=== PATIENT | female | born 1955 | race Caucasian/White ===

== ENCOUNTER 2019-11-20 15:13 | Inpatient (IN) | payer MEDICARE, OTHER ==
--- NOTE | 2019-11-20 16:08 | RAD ---
FRONTAL RADIOGRAPH CHEST: 11/20/19 COMPARISON: 09/26/19. HISTORY: Unresponsive patient. FINDINGS: There has been interval development of interstitial and alveolar opacity in the perihilar regions and both lung bases with dense opacity and bilateral lung bases obscuring bilateral hemidiaphragms. No p neumothorax. IMPRESSION: Nonspecific interstitial and alveolar opacity in the perihilar regions in both lung bases. Findings m ay be on the basis of multifocal infectious pneumonitis, aspiration, and/or pulmonary edema. POS: [facility]
[2019-11-20 16:10] LABS: Hemoglobin 3.8 g/dL (12.0-16.0); Mean Corpuscular HGB CONC 33.6 g/dL (32.0-36.0); Mean Corpuscular Hemoglobin 34.5 pg (27.0-31.0); Platelet Count 44 thou/uL (130-400); RBC Distribution Width 19.6 % (11.5-14.5); Red Blood Cell (RBC) Count 1.09 mill/uL (4.20-5.40); White Blood Cell (WBC) Count 0.4 thou/uL (4.8-10.8)
[2019-11-20 16:12] LABS: Reflex for Review?? YES
[2019-11-20 16:17] LABS: Bilirubin Negative (Negative); Blood, Urine 1+ (Negative); Clarity Extra Turbid (Clear); Glucose, Urine (Dipstick) Normal (Negative); Ketone, Urine Negative (Negative); Leukocyte 500 Leu/uL (Negative); Nitrite Negative (Negative); Protein, Urine (Dipstick) 100 mg/dL (Neg-Trace); RBC/HPF 21-50 HPF (0-3); Specific Gravity, Urine 1.018 (1.002-1.036); Urobilinogen Normal mg/dL (Less than 2); WBC/HPF Greater than 50 HPF (0-3); pH, Urine 6.5 (5.0-9.0)
[2019-11-20 16:25] LABS: Bacteria/HPF 4+ HPF (None Seen); Squamous Epithelial 0-3 HPF (0-3)
[2019-11-20 16:27] LABS: ALT (SGPT) 7 U/L (8-55); AST (SGOT) 12 U/L (5-34); Albumin 1.6 g/dL (3.4-4.8); Alkaline Phosphatase 45 U/L (40-110); Anion Gap 20 mmol/L (10-20); BUN (Urea Nitrogen) 24 mg/dL (9.8-20.1); Bilirubin, Total 0.2 mg/dL (0.2-1.2); Calc. Creatinine Clearance 0 mL/min (70-130); Carbon Dioxide 14 mmol/L (23-31); Chloride 112 mmol/L (98-107); Estimated GFR-MDRD 30; Globulin 6.2 g/dL (2.4-3.5); Glucose 103 mg/dL (80-115); Potassium 3.7 mmol/L (3.5-5.1); Protein, Total 7.8 g/dL (6.0-8.3); Sodium 142 mmol/L (136-145)
[2019-11-20 16:44] LABS: Calcium 5.8 mg/dL (7.8-10.44)
[2019-11-20] MEDS ORDERED: EPINEPHrine 1 MG/10 ML Abboject SYRINGE ONE (16:44)
[2019-11-20 16:48] LABS: CKMB 2.5 ng/mL (0-6.6)
[2019-11-20] MEDS ORDERED: Succinylcholine Chloride 20 MG/ML 10 ml SYRINGE FS ONE (17:18)
[2019-11-20] MEDS ORDERED: Norepinephrine 8 MG/0.9% NS 250 ML ONE (17:33)
[2019-11-20] MEDS ORDERED: Acetaminophen 325 MG TAB PO PRN (18:01)
[2019-11-20] MEDS ORDERED: Metoclopramide HCl 10 MG/2 ML VIAL IVP PRN (18:02)
[2019-11-20 18:11] LABS: Actual Bicarbonate (HCO3a) 9.1 mEq/L (22-28); Analyzer IN Cardio ER; Base Excess (BEa) -17.7 mEq/L (-2.0 to +3.0); Calcium, Ionized (arterial) 0.89 mmol/L (1.12-1.30); Carboxyhemoglobin (COHb) 0.1 gm% (0.0-3.0); O2 Tension (PaO2), arterial 95.5 mmHg (> 80.0); Potassium - ABG Lab 3.98 mmol/L (3.70-5.30)
[2019-11-20 18:14] LABS: CO2 Tension 25.2 mmHg (35.0-45.0); Hemoglobin (Hb) 5.2 g/dL (12.0-16.0); Puncture Site FEMORAL; pH, Arterial 7.18 (7.35-7.45)
[2019-11-20] MEDS ORDERED: Ketamine 50 MG/ML (10ML VIAL) ONE (18:19)
--- NOTE | 2019-11-20 18:21 | RAD ---
FRONTAL RADIOGRAPH CHEST: 11/20/19 COMPARISON: Prior study on same day. HISTORY: Short of breath. FINDINGS: New endotracheal tube and nasogastric tube. There is perihilar interstitial and alveolar opacity with dense opacity in the lung bases as seen on the prior exam. IMPRESSION: Interval intubation and placement of nasogastric tube. Persistent pleural and parenchymal opacity blayne aterally. POS: [facility]
--- NOTE | 2019-11-20 18:26 | RAD ---
FRONTAL RADIOGRAPH PELVIS: 11/20/19 COMPARISON: None. HISTORY: Evaluate for guidewire. FINDINGS: There is catheter tubing with an associated wire curling over the soft tissues medial to the right le sser trochanter. Vascular stent overlies the pelvis. IMPRESSION: Catheter tubing with associated metallic wire curls over the soft tissues of the right inguinal regio n medial to the proximal right femur. POS: [facility]
[2019-11-20] MEDS ORDERED: Lorazepam 2 MG/ML VIAL ONE (18:33)
--- NOTE | 2019-11-20 19:11 | PDOC.BPN ---
- Brief Progress Note This is a procedure note for central venous catheter placement. A timeout was performed. The patient was dressed and draped in a sterile fashion. The right internal jugular vein was identified with an ultrasound and accessed with the finder needle. Dark venous blood was withdrawn. The guidewire was advanced over the needle into the vein. Placement was confirmed with the ultrasound. Triple-lumen catheter was placed over the guidewire. Blood return was obtained and the line was flushed. Chest x-ray was ordered to confirm placement.
--- NOTE | 2019-11-20 19:18 | PDOC.HHP ---
Hospitalist HPI - History of Present Illness Unresponsive History of Present Illness: Patient is a 64-year-old female with past medical history of multiple myeloma who is a correction resident and was brought to the ER in unresponsive state. She was found to be in a state of shock. Hypotension persisted despite bolus IV fluids. Her blood work revealed severe pancytopenia. Chest x-ray showed bilateral infiltrates and UA was positive for UTI. No further history can be obtained from the patient as she is intubated at this time. At the time of my evaluation, the patient was in a state of shock with systolic blood pressure in the 50s. She had multiple peripheral lines with no central line. An emergent central line was placed by myself and vasopressors has been initiated. Hospitalist ROS - Medication Medications: Unable to obtain due to altered mental status Hospitalist History - Past Medical History Other Medical History: Multiple myeloma - Past Surgical History Other Surgical History: Unable to obtain due to altered mental status. - Family History Family History: reports: no pertinent history - Exam General - other findings: The patient is intubated ENT: normocephalic atraumatic Neck: supple, no JVD Heart: RRR Respiratory: normal chest expansion, no tachypnea, rhonchi Gastrointestinal: soft, non-distended, normal bowel sounds Hospitalist Results - Labs Result Diagrams: 11/20/19 15:42 11/20/19 15:45 Lab results: WBC 0.4 thou/uL (4.8-10.8) L* 11/20/19 15:42 Hgb 3.8 g/dL (12.0-16.0) L* 11/20/19 15:42 Hct 11.2 % (36.0-47.0) L* 11/20/19 15:42 MCV 103.0 fL (78.0-98.0) H 11/20/19 15:42 Plt Count 44 thou/uL (130-400) L 11/20/19 15:42 ABG pH 7.18 (7.35-7.45) L* 11/20/19 18:07 ABG pCO2 25.2 mmHg (35.0-45.0) L* 11/20/19 18:07 ABG pO2 95.5 mmHg (> 80.0) H 11/20/19 18:07 Sodium 142 mmol/L (136-145) 11/20/19 15:45 Potassium 3.7 mmol/L (3.5-5.1) 11/20/19 15:45 Chloride 112 mmol/L (98-107) H 11/20/19 15:45 Carbon Dioxide 14 mmol/L (23-31) L 11/20/19 15:45 BUN 24 mg/dL (9.8-20.1) H 11/20/19 15:45 Creatinine 1.70 mg/dL (0.6-1.1) H 11/20/19 15:45 Glucose 103 mg/dL (80-115) 11/20/19 15:45 Lactic Acid 10.4 mmol/L (0.5-2.2) H* 11/20/19 15:42 Calcium 5.8 mg/dL (7.8-10.44) L* 11/20/19 15:45 Total Bilirubin 0.2 mg/dL (0.2-1.2) 11/20/19 15:45 AST 12 U/L (5-34) 11/20/19 15:45 ALT 7 U/L (8-55) L 11/20/19 15:45 Alkaline Phosphatase 45 U/L (40-110) 11/20/19 15:45 CK-MB (CK-2) 2.5 ng/mL (0-6.6) 11/20/19 15:42 Troponin I 0.053 ng/mL (< 0.028) H 11/20/19 15:42 Serum Total Protein 7.8 g/dL (6.0-8.3) 11/20/19 15:45 Albumin 1.6 g/dL (3.4-4.8) L 11/20/19 15:45 Urine Ketones Negative mg/dL (Negative) 11/20/19 15:56 Urine Blood 1+ (Negative) A 11/20/19 15:56 Urine Nitrite Negative (Negative) 11/20/19 15:56 Ur Leukocyte Esterase 500 Elkin/uL (Negative) A 11/20/19 15:56 Urine RBC 21-50 HPF (0-3) A 11/20/19 15:56 Urine WBC Greater than 50 HPF (0-3) A 11/20/19 15:56 Ur Squamous Epith Cells 0-3 HPF (0-3) 11/20/19 15:56 Urine Bacteria 4+ HPF (None Seen) A 11/20/19 15:56 Hospitalist H&P A/P - Problem (1) Severe sepsis Code(s): A41.9 - SEPSIS, UNSPECIFIED ORGANISM; R65.20 - SEVERE SEPSIS WITHOUT SEPTIC SHOCK Status: Acute (2) Septic shock Code(s): A41.9 - SEPSIS, UNSPECIFIED ORGANISM; R65.21 - SEVERE SEPSIS WITH SEPTIC SHOCK Status: Acute (3) Acute respiratory failure with hypoxia Code(s): J96.01 - ACUTE RESPIRATORY FAILURE WITH HYPOXIA Status: Acute (4) HCAP (healthcare-associated pneumonia) Code(s): J18.9 - PNEUMONIA, UNSPECIFIED ORGANISM Status: Acute (5) UTI (urinary tract infection) Status: Acute (6) Pancytopenia Code(s): D61.818 - OTHER PANCYTOPENIA Status: Acute (7) Multiple myeloma Code(s): C90.00 - MULTIPLE MYELOMA NOT HAVING ACHIEVED REMISSION Status: Acute (8) Acute kidney failure Status: Acute (9) Hypocalcemia Code(s): E83.51 - HYPOCALCEMIA Status: Acute (10) Lactic acidosis Code(s): E87.2 - ACIDOSIS Status: Acute - Plan Plan: Admit to the intensive care unit. The patient was intubated in the ER. Propofol for sedation. Pulmonology consult for vent management. Septic shock now on norepinephrine and vasopressin. Titrate for map greater than 65. Start vancomycin, cefepime, and metronidazole for sepsis due to aspiration pneumonia and UTI. Check blood, sputum, and urine cultures. Pancytopenia due to multiple myeloma. We will transfuse 4 units of packed RBCs to achieve hemoglobin level of 7 or greater. No indication for platelet transfusion at this time as the patient is not actively bleeding. Rapid COVID test is negative. SCDs for DVT prophylaxis due to thrombocytopenia. Start bicarbonate drip for KATELYN and lactic acidosis. Replace Calcium.
--- NOTE | 2019-11-20 19:28 | RAD ---
FRONTAL RADIOGRAPH CHEST: 11/20/19 at 7:13 p.m. COMPARISON: 11/20/19 at 5:56 p.m. HISTORY: Evaluate chest following central line placement. FINDINGS: Right sided vascular catheter present, distal tip overlying the expected location of the right atrium . Dense opacity in the perihilar regions in both lung bases persist. Endotracheal tube and nasogastri c tube in stable position. Supine imaging limits assessment for pneumothorax. IMPRESSION: Right vascular catheter as above. POS: [facility]
[2019-11-20] MEDS ORDERED: Calcium Gluconate 100 MG/ML 10 ML IVPB SCH ×2 (19:30)
[2019-11-20 19:36] LABS: Lactic Acid 11.4 mmol/L (0.5-2.2)
[2019-11-20 19:37] LABS: Troponin I 0.054 ng/mL (< 0.028)
[2019-11-20] MEDS ORDERED: Sodium Bicarbonate 150 MEQ in Dextrose 5% in Water 1,000 ML IV SCH (20:00)
[2019-11-20] MEDS ORDERED: Calcium Gluconate 4.6 MEQ in Sodium Chloride 0.9% 100 ML IVPB SCH (20:00)
[2019-11-20 20:02] VITALS: BMI 30.4
[2019-11-20] MEDS: Sodium Chloride 0.9% 1,000 ML IV SCH (20:05)
[2019-11-20] MEDS ORDERED: Sodium Chloride 0.9% 1,000 ML IV PRN (20:47)
[2019-11-20] MEDS: metroNIDAZOLE 500 MG in Premix Bag 1 BAG IVPB SCH (20:53)
[2019-11-20] MEDS: Phenylephrine 40 MG in Sodium Chloride 0.9% 250 ML 250 ML IVPB SCH (20:56)
[2019-11-20] MEDS ORDERED: Cefepime 2 GM in Sodium Chloride 0.9% 100 ML IVPB SCH (21:00)
[2019-11-20] MEDS: Norepinephrine 8 MG/0.9% NS 250 ML IVPB SCH (22:17)
[2019-11-20] MEDS: EPINEPHrine 4 MG in Dextrose 5% in Water 250 ML IV PRN (22:22)
[2019-11-20] MEDS ORDERED: Vancomycin 1.5 GRAM/300 ML BAG 1.5 GM in Premix Bag 1 BAG IVPB SCH (23:00)
[2019-11-20 23:10] LABS: Actual Bicarbonate (HCO3a) 8.7 mEq/L (22-28); Base Excess (BEa) -18.7 mEq/L (-2.0 to +3.0); Calcium, Ionized (arterial) 0.89 mmol/L (1.12-1.30); Carboxyhemoglobin (COHb) 0.2 gm% (0.0-3.0); Hemoglobin (Hb) 6.8 g/dL (12.0-16.0); O2 Tension (PaO2), arterial 63.2 mmHg (> 80.0); Potassium - ABG Lab 3.57 mmol/L (3.70-5.30)
[2019-11-20 23:13] LABS: pH, Arterial 7.14 (7.35-7.45)
[2019-11-20 23:15] LABS: Puncture Site ART LINE
[2019-11-20] MEDS ORDERED: Sodium Chloride 0.9% 1,000 ML IV SCH (23:15)
[2019-11-20 23:59] LABS: Troponin I 0.052 ng/mL (< 0.028)
[2019-11-21] MEDS: Sodium Bicarbonate 140 MEQ in Dextrose 5% in Water 1,000 ML IV SCH ×2 (00:01→00:10)
[2019-11-21] MEDS: Phenylephrine 40 MG in Sodium Chloride 0.9% 250 ML 250 ML IVPB SCH ×4 (00:01→05:16)
[2019-11-21] MEDS: Hydrocortisone Sod Succ/PF 100 mg/2 ml Vial IVP SCH ×2 (00:10→05:15)
--- NOTE | 2019-11-21 00:28 | CON ---
DATE OF CONSULTATION: 11/20/2019 This is 90 minutes of critical care time. CONSULTING PHYSICIAN: Karina Moreno MD from the [facility]ist [facility]. REASON FOR CONSULTATION: Septic shock. HISTORY OF PRESENT ILLNESS: The patient is a very ill 64-year-old female from a alf, who presented with hypotension and septic shock. She had a central line placed in the emergency room. She was placed on vasopressin, Sage-Synephrine, and norepinephrine all without appreciable improvement in her blood pressure. She was noted to be profoundly anemic with a hemoglobin of 5. She has so far received 4 units of blood again without improvement in her blood pressure. I was consulted to see the patient for critical care management, also to place an arterial line. PAST MEDICAL HISTORY: Multiple myeloma. The patient's brother said that they have been treating this on and off for years. They had stopped treatment recently, but we are going to start again if she improves. PAST SURGICAL HISTORY: Unknown. SOCIAL HISTORY: Nonsmoker and nondrinker. MEDICATIONS: Prior to admission, not known. FAMILY MEDICAL HISTORY: Unremarkable. REVIEW OF SYSTEMS: Unobtainable. PHYSICAL EXAMINATION: VITAL SIGNS: Heart rate 84, blood pressure 84/28 via art line, O2 saturation 90%, respiratory rate 30. GENERAL: The patient has alopecia. She looks profoundly ill. She has severe muscle wasting. HEENT: Pupils are sluggish. Oropharynx, dry. NECK: No JVD. LUNGS: Coarse breath sounds. CARDIOVASCULAR: S1 and S2. Regular. ABDOMEN: Obese, soft. EXTREMITIES: No edema. LABORATORY DATA: White blood cell count 0.4, hematocrit 11.2, and platelet count 44. PH 7.14, pCO2 of 26, pO2 of 63 on SIMV rate 20, tidal volume 500, PEEP 5, pressure support 10, and FiO2 of 70%. Sodium 142, potassium 3.7, chloride 112, CO2 of 14, BUN 24, creatinine 1.7, glucose 103, lactate 11.4, troponin 0.054. Urinalysis shows greater than 50 white blood cells. COVID test was negative. Her chest x-ray demonstrated right lower lobe infiltrate. EG tube in good position. Right IJ central line. ASSESSMENT: 1. Septic shock. 2. Urinary tract infection. 3. Pneumonia. 4. Pancytopenia. 5. Profound anemia. 6. Acute renal dysfunction. PLAN: This patient is desperately ill and probably will not survive the night. She is currently on four vasopressors with barely detectable blood pressure. I am going to try to give her some volume in the way of blood, platelets, and FFP. She will receive a bicarbonate drip. We will continue the vasopressors. I have reviewed the orders by the hospitalist and agree with the current antibiotics. Additionally, I will place the patient on hydrocortisone as I would guess the patient probably receives steroids in the course of treatment of multiple myeloma and may be adrenally suppressed. I spoke with the patient's brother on the phone, who is the next of kin. I told him that I doubt she would survive the night. Initially, the patient was no chest compressions, but he has agreed to full DNR. Job ID: [id number]
[2019-11-21] MEDS: EPINEPHrine 4 MG in Dextrose 5% in Water 250 ML IV PRN ×2 (01:46→05:16)
[2019-11-21] MEDS: Norepinephrine 8 MG/0.9% NS 250 ML IVPB SCH ×2 (01:50→05:16)
[2019-11-21] MEDS: Sodium Chloride 0.9% 1,000 ML IV SCH (03:30)
[2019-11-21 04:20] VITALS: TEMP 96
[2019-11-21] MEDS: metroNIDAZOLE 500 MG in Premix Bag 1 BAG IVPB SCH (05:17)
[2019-11-21 06:40] LABS: Hemoglobin 8.8 g/dL (12.0-16.0); Mean Corpuscular HGB CONC 31.6 g/dL (32.0-36.0); Mean Corpuscular Hemoglobin 30.6 pg (27.0-31.0); Mean Corpuscular Volume 96.7 fL (78.0-98.0); Mean Platelet Volume 8.1 fL (7.4-10.4); Platelet Count 74 thou/uL (130-400); RBC Distribution Width 16.7 % (11.5-14.5); Red Blood Cell (RBC) Count 2.87 mill/uL (4.20-5.40); White Blood Cell (WBC) Count 0.7 thou/uL (4.8-10.8)
[2019-11-21 06:50] LABS: Band 16 % (5-11); Hypochromia SLIGHT = 6-15 cells (100X) (0-5/hpf); Lymphocytes 48 % (21-51); MDiff Complete? YES; Monocytes 16 % (0-10); Neutrophil 20 % (42-75); Nucleated RBC 1 % (0); Platelet Morphology Comment Appears Decreased
[2019-11-21 06:52] LABS: Actual Bicarbonate (HCO3a) 6.5 mEq/L (22-28); Base Excess (BEa) -22.7 mEq/L (-2.0 to +3.0); Calcium, Ionized (arterial) 0.86 mmol/L (1.12-1.30); Carboxyhemoglobin (COHb) 0.1 gm% (0.0-3.0); Hemoglobin (Hb) 8.8 g/dL (12.0-16.0)
[2019-11-21 06:55] LABS: ALT (SGPT) 10 U/L (8-55); AST (SGOT) 42 U/L (5-34); Albumin 1.5 g/dL (3.4-4.8); Alkaline Phosphatase 45 U/L (40-110); Anion Gap 22 mmol/L (10-20); BUN (Urea Nitrogen) 22 mg/dL (9.8-20.1); Calc. Creatinine Clearance 43 mL/min (70-130); Calcium 5.3 mg/dL (7.8-10.44); Carbon Dioxide 9 mmol/L (23-31); Chloride 112 mmol/L (98-107); Estimated GFR-MDRD 34; Globulin 4.1 g/dL (2.4-3.5); Glucose 90 mg/dL (80-115); Potassium 4.3 mmol/L (3.5-5.1); Protein, Total 5.6 g/dL (6.0-8.3); Sodium 139 mmol/L (136-145)
[2019-11-21 07:10] LABS: CO2 Tension 25.4 mmHg (35.0-45.0); O2 Tension (PaO2), arterial 53.7 mmHg (> 80.0); Puncture Site ALINE; pH, Arterial 7.03 (7.35-7.45)
[2019-11-21] MEDS ORDERED: Calcium Gluconate 9.2 MEQ in Sodium Chloride 0.9% 100 ML IVPB SCH (08:31)
--- NOTE | 2019-11-21 08:47 | PRG ---
DATE OF SERVICE: 11/21/2019 35 minutes critical care time. SUBJECTIVE: This patient remains intubated on mechanical ventilation. PHYSICAL EXAMINATION: GENERAL: She looks absolutely terrible. Skin is purple from her waist downward. She is no longer moving about in the bed. VITAL SIGNS: Temperature 96, pulse 80, blood pressure 107/48. Intake of 5720, output 5 mL. HEENT: Alopecia. Orotracheal tube in place. NECK: No JVD. LUNGS: Coarse rhonchi. CARDIOVASCULAR: S1 and S2. Regular. ABDOMEN: Obese. EXTREMITIES: Purple discoloration throughout. LABORATORY DATA: ABG; pH 7.03, pCO2 of 25, pO2 of 53 on SIMV rate 28, tidal volume 500, PEEP 5, pressure support 10, FiO2 of 85%. White blood cell count 0.7, hematocrit 27.8, and platelet count 74. Sodium 139, potassium 4.3, chloride 112, CO2 of 9, BUN 22, creatinine 1.5, glucose 90, calcium is 5.3. She is on bicarbonate drip. She has gram-negative rods which are probably enterobacter growing out. ASSESSMENT: 1. Gram-negative sepsis. 2. Multiple myeloma. 3. Pancytopenia. 4. Acute respiratory failure requiring mechanical ventilation. PLAN: The patient is basically in refractory shock. She is on 4 vasopressors including epinephrine, norepinephrine, vasopressin, and phenylephrine. Additionally, she has a refractory metabolic acidosis. She is on appropriate antibiotics. In my opinion, she has no hope for survival. I discussed with her brother last night and patient was made a full DNR. This morning, I tried to get in touch with him again, but he was out running a marathon, so I talked to his and told them that they need to come to the hospital and enact the patient's advance directive which was not to be kept alive in this circumstance. Job ID: [id number]
[2019-11-21] MEDS ORDERED: Prevnar 13-Val Conj/PF 0.5 ML SYRINGE IM ONE (21:00)
[2019-11-21] MEDS ORDERED: Cefepime 1 GM in Sodium Chloride 0.9% 100 ML IVPB SCH (21:00)
[2019-11-21] MEDS ORDERED: Vancomycin 1 GM in Premix Bag 1 BAG IVPB SCH (23:00)
--- NOTE | 2019-11-22 05:55 | DIS ---
DATE OF ADMISSION: 11/20/2019 DATE OF DISCHARGE: 11/21/2019 DISCHARGE DIAGNOSES: 1. Refractory septic shock. 2. Gram-negative sepsis. 3. Pancytopenia due to multiple myeloma. 4. Severe metabolic acidosis. 5. Acute respiratory failure with hypoxia, requiring mechanical ventilation. DISPOSITION: The patient was pronounced by November 21, 2019, at 8:40 a.m. HISTORY OF PRESENT ILLNESS AND HOSPITAL COURSE: The patient is a 64-year-old female with past medical history of multiple myeloma, who was brought to the ER in an unresponsive state from her assisted residents. In the ER, she was found to be in respiratory failure and septic shock. She was intubated and mechanically ventilated. She was started on empiric IV antibiotics and IV vasopressors and admitted to the ICU. Her source for infection revealed to be urinary tract infection in addition to pneumonia. The patient was aggressively resuscitated including IV fluids, IV antibiotics, IV bicarbonate for acidosis, and multiple units of packed RBCs for her severe anemia. The patient's anemia improved, however, her septic shock was refractory despite being on multiple IV vasopressors. Her urine and blood culture showed growth of gram-negative jeyson and Enterobacter species. The patient continued to be acidotic, and despite our best efforts, succumbed to her illness at the time specified above. Job ID: [id number]
== END 2019-11-21 08:40 | disposition expired | DRG 871 ==
LOC: ERS 15:13 → CCU 17:25
PROVIDERS: ADMIT Internal Medicine; ATTEND Internal Medicine
PROC: 5A1935Z Respiratory Ventilation, Less than 24 Consecutive Hours (ICD-10-PCS; principal; 2019-11-20)
PROC: 06HY33Z Insertion of Infusion Device into Lower Vein, Percutaneous Approach (ICD-10-PCS; 2019-11-20)
PROC: 3E043XZ Introduction of Vasopressor into Central Vein, Percutaneous Approach (ICD-10-PCS; 2019-11-20)
PROC: 02H633Z Insertion of Infusion Device into Right Atrium, Percutaneous Approach (ICD-10-PCS; 2019-11-20)
PROC: B548ZZA Ultrasonography of Superior Vena Cava, Guidance (ICD-10-PCS; 2019-11-20)
PROC: 30243N1 Transfusion of Nonautologous Red Blood Cells into Central Vein, Percutaneous Approach (ICD-10-PCS; 2019-11-20)
PROC: 0BH17EZ Insertion of Endotracheal Airway into Trachea, Via Natural or Artificial Opening (ICD-10-PCS; 2019-11-20)
PROC: 30243L1 Transfusion of Nonautologous Fresh Plasma into Central Vein, Percutaneous Approach (ICD-10-PCS; 2019-11-21)
PROC: 30243R1 Transfusion of Nonautologous Platelets into Central Vein, Percutaneous Approach (ICD-10-PCS; 2019-11-21)
PROC: 30243K1 Transfusion of Nonautologous Frozen Plasma into Central Vein, Percutaneous Approach (ICD-10-PCS; 2019-11-21)
DX: A41.59 Other Gram-negative sepsis (principal); R65.21 Severe sepsis with septic shock; J96.01 Acute respiratory failure with hypoxia; J18.9 Pneumonia, unspecified organism; J69.0 Pneumonitis due to inhalation of food and vomit; R40.2322 Coma scale, best motor response, extension, at arrival to emergency department; R40.2112 Coma scale, eyes open, never, at arrival to emergency department; R40.2212 Coma scale, best verbal response, none, at arrival to emergency department; N17.9 Acute kidney failure, unspecified; C90.00 Multiple myeloma not having achieved remission; D61.818 Other pancytopenia; N39.0 Urinary tract infection, site not specified; E87.2 Acidosis; Z66 Do not resuscitate; Z20.828 Contact with and (suspected) exposure to other viral communicable diseases; Y95 Nosocomial condition; E83.51 Hypocalcemia; Z78.1 Physical restraint status; Z79.899 Other long term (current) drug therapy; Z88.8 Allergy status to other drugs, medicaments and biological substances
CPT/HCPCS: 36415; 36430; 71045; 72170; 80053; 81003; 81015; 82553; 82805; 83605; 84443; 84484; 85007; 85025; 85027; 85060; 86850; 86900; 86901; 86922; 87040; 87070; 87077; 87086; 87149; 87186; 87205; 93005; 94002; 94003; J0171; J0692; J1720; J2060; J2370; J3370; J3490; J7050; J7070; P9016; P9035; P9059; U0002